=== PATIENT | female | born 1970 | race Caucasian/White ===

== ENCOUNTER 2021-03-02 15:36 | Inpatient (IN) | payer OTHER, SELFPAY ==
[~2021-03-02] VITALS: Ht 177.8 cm; Wt 96.3 kg
--- NOTE | 2021-03-02 15:40 | NUR ---
ARRIVAL PRESENTED TO ED RM #3 AMBULATORY WITH C/O CHEST PAIN SINCE 0100AM AND N/V THIS AM. C/O SOB THIS AFTERNOON AND INCREASING SEVERITY OF CHEST PAIN. VS OBTAINED. DR. DICKINSON NOTIFIED OF PATIENT ARRIVAL.
--- NOTE | 2021-03-02 15:45 | NUR ---
EKG EKG OBTAINED. EKG REVIEWED BY DR. DICKINSON. NO NEW ORDERS AT THIS TIME.
[2021-03-02 16:06] VITALS: BP 117/75
--- NOTE | 2021-03-02 16:10 | NUR ---
MD DR. DICKINSON AT BEDSIDE.
--- NOTE | 2021-03-02 16:22 | PCM.EKG ---
[facility] Test Date: 2021-03-02 Test Time: 15:47:25 Pat Name: SUSHIL POTTS Department: Room: 330 Gender: F Front Desk Monitor: FILI : 1970 Requested By: JERRY DICKINSON Order Number: [id number] Reading MD: Jerry Dickinson Measurements Intervals [place] Rate: 106 P: 29 IN: 135 QRS: -14 QRSD: 84 T: 16 QT: 352 QTc: 468 Interpretive Statements Sinus tachycardia Inferior infarct, old No previous ECG available for comparison Electronically Signed On 03-08-2021 5:00:40 CLIENT CARE COORDINATOR by Jerry Dickinson Please click the below link to view image of tracing.
[2021-03-02] MEDS ORDERED: LIDOCAINE VISCOUS ONE (16:25)
[2021-03-02] MEDS ORDERED: NS 1000ML 1,000 ML IV STA (16:25)
[2021-03-02] MEDS ORDERED: PHENERGAN IV STA (16:25)
[2021-03-02] MEDS ORDERED: MYLANTA ONE (16:26)
[2021-03-02 16:37] LABS: LYMPHOCYTES # 1.28 10^3/uL1 (1.0-4.8); MEAN CORP HGB 35.6 pg (26-34); MONOCYTES # 0.6 10^3/uL (0.3-0.8); MONOCYTES % 6.2 % (5.0-12.0); NEUTROPHIL # 7.3 10^3/uL (1.8-7.7); NEUTROPHILS % 79.7 % (41.0-85.0); PLATELET COUNT 210 10^3/uL (150-400); RED CELL DISTRIBUTION WIDTH 12.1 % (11.5-14.5)
[2021-03-02] MEDS ORDERED: NS 1000ML 1,000 ML ONE (16:42)
[2021-03-02] MEDS ORDERED: PHENERGAN ONE (16:42)
--- NOTE | 2021-03-02 17:00 | ER.PDOC ---
General Chief Complaint: Requesting Medical Care Stated Complaint: CHEST PAIN Time seen by MD: 16:20 Source: patient, family Exam Limitations: no limitations History of Present Illness Initial Comments This 50-year-old female comes in with a complaint of abdominal pain this been present now since 1 AM. Stated it woke her up with a severe epigastric pain. She has had some nausea vomiting throughout the day. The pain at 1:00 she rated at 10/10. It is slowly improved some and is now down to a 6/10. Patient states that she had similar pain about a month ago that lasted for about 12 hours and went away. She stated that that pain also woke her up at night and was not as severe and went away about 12 hours later. She did not seek any medical attention at that time. Patient's cardiac risk factors are a [id number] history of smoking a pack of cigarettes per day. She also has a 3-year history of drinking a pint of whiskey per day. I suspect her pain could either be a pancreatitis or possibly alcoholic gastritis. However, we will also check cardiac enzymes and EKG. Patient states that she has some nausea and diaphoresis with this but she thinks it secondary to the pain. I asked about shortness of breath and she states it hurts to take a deep breath but she denies actual shortness of breath. Timing/Duration: other (Approximately 16 hours now with pain slowly slowly improving) Severity/Quality: severe, burning, cramping, stabbing, throbbing Radiation: no radiation Associated Symptoms: diaphoresis, heartburn, nausea/vomiting Exacerbated by: movements, other (Any movement has caused her pain to be worse. She states that even riding the car and made her pain worse. All the pain is still mid abdomen/mid abdomen through epigastric region.) Relieved By: upright position (Remaining still and and a slightly upright position seems to be better. Lying down seems to make her pain worse), remaining still Allergies: Coded Allergies: Penicillins (Verified Allergy, Unknown, hives, 03/02/21) erythromycin base (Verified Allergy, Unknown, 03/02/21) Vital Signs First Vital Signs Date Time Temp Pulse Resp B/P (MAP) Pulse Ox O2 Delivery O2 Flow Rate FiO2 03/02/21 16:06 98.0 110 20 117/75 (89) 96 Room Air Last Vital Signs Date Time Temp Pulse Resp B/P (MAP) Pulse Ox O2 Delivery O2 Flow Rate FiO2 03/02/21 17:21 98.0 97 18 117/75 (89) 96 Room Air Past Medical History Medical History: COPD, other Surgical History: hysterectomy Family History Significant Family History: no pertinent family hx Social History Smoking: cigarettes, greater than 1 pack/day Alcohol Use: heavy Drug Use: none Reviewed Nursing Reviewed: Vital Signs, Abn. Noted (Patient has some tachycardia but I think his pain response), Nursing Assessment Gastrointestinal: see HPI All Other Systems: Reviewed and Negative Physical Exam General Appearance: No Apparent Distress, WD/WN, Moderate Distress HEENT: PERRL/EOMI, Normal ENT Inspection, Pharynx Normal Neck: Non-Tender, Full Range of Motion, Supple, Normal Inspection Respiratory: chest non-tender, lungs clear, normal breath sounds, no respiratory distress, no accessory muscle use Cardiovascular: Normal Peripheral Pulses, No Edema, No Gallop, No JVD, No Murmur, Tachycardia Gastrointestinal: Hypoactive bowel sounds, Guarding, Rebound, Tenderness (All pain is in the mid to epigastric region.) Back: Normal Inspection, No CVA Tenderness Extremities: Normal Range of Motion, Non-Tender, Normal Inspection, No Pedal Edema, No Calf Tenderness, Normal Capillary Refill, Pelvis Stable Neurologic/Psychiatric: folded cloth taper II-XII NML as Tested, No Motor/Sensory Deficits, Alert, Normal Mood/Affect, Oriented x 3 Skin: Normal Color, Warm/Dry Lymphatic: No Adenopathy Results/Orders Results/Orders Orders - PATRIA DICKINSON MD Ekg-Routine (03/02/21 16:20) Covid19 Antigen Rajwinder Taya (03/02/21 16:20) Lidocaine Hcl (Lidocaine Viscous) (03/02/21 16:25) Mag Hydrox/Aluminum Hyd/Simeth (Mylanta) (03/02/21 16:26) Cbc With Auto Diff (03/02/21 16:25) Comprehensive Metabolic Panel (03/02/21 16:25) Creatine Kinase (03/02/21 16:25) Creatine Kinase Mb (03/02/21 16:25) Probnp B-Type Store Sales Consultant (03/02/21 16:25) PT (03/02/21 16:25) Partial Thromboplastin Time. (03/02/21 16:25) Helicobacter Pylori (03/02/21 16:25) Troponin I High Sensitivity (03/02/21 16:25) Amylase (03/02/21 16:25) Lipase (03/02/21 16:25) Alcohol(Ml) (03/02/21 16:25) 0.9 % Sodium Chloride (Ns 1000ml) (03/02/21 16:25) Promethazine Hcl (Phenergan) (03/02/21 16:25) 0.9 % Sodium Chloride (Ns 1000ml) (03/02/21 16:42) Promethazine Hcl (Phenergan) (03/02/21 16:42) Lipid Panel(Ml) (03/02/21 17:28) Ct Abd/Pel With Iv Contrast (03/02/21 17:28) Lorazepam (Ativan) (03/02/21 17:41) Hydromorphone Hcl (Dilaudid) (03/02/21 17:41) Hydromorphone Hcl (Dilaudid) (03/02/21 17:44) Lorazepam (Ativan) (03/02/21 17:45) Vital Signs Date Time Temp Pulse Resp B/P (MAP) Pulse Ox O2 Delivery O2 Flow Rate FiO2 03/02/21 17:21 98.0 97 18 117/75 (89) 96 Room Air 03/02/21 16:06 98.0 105 19 03/02/21 16:06 98.0 105 19 95 03/02/21 16:06 98.0 110 20 117/75 (89) 96 Room Air Administered Medications Medications (Trade) Dose Ordered Sig/Gerardo Route PRN Reason Start Time Stop Time Status Last Admin Dose Admin Hydromorphone HCl (Dilaudid) 0.5 mg Q4H STAT IV 03/02/21 17:41 03/02/21 17:43 DC 03/02/21 18:34 0.5 MG Lorazepam (Ativan) 1 mg STAT STAT IV 03/02/21 17:41 03/02/21 17:43 DC 03/02/21 18:32 1 MG Promethazine HCl (Phenergan) 25 mg OT STAT IV 03/02/21 16:25 03/02/21 16:31 DC 03/02/21 16:40 25 MG Sodium Chloride 1,000 ml @ 250 mls/hr Q4H STAT IV 03/02/21 16:25 03/02/21 20:24 03/02/21 16:40 250 MLS/HR Laboratory Tests Test 03/02/21 16:00 White Blood Count 9.1 10^3/uL (4.5-11.0) Red Blood Count 4.35 10^6/uL (4.00-5.20) Hemoglobin 15.5 g/dL (12.0-15.0) H Hematocrit 46.5 % (36.0-46.0) H Mean Corpuscular Volume 106.9 fL (78-100) H Mean Corpuscular Hemoglobin 35.6 pg (26-34) H Mean Corpuscular Hemoglobin Concent 33.3 g/dL (33-36.5) Red Cell Distribution Width 12.1 % (11.5-14.5) Platelet Count 210 10^3/uL (150-400) Mean Platelet Volume 10.7 fL (7.8-11.0) Neutrophils (%) (Auto) 79.7 % (41.0-85.0) Lymphocytes (%) (Auto) 14.0 % (24.0-44.0) L Monocytes (%) (Auto) 6.2 % (5.0-12.0) Neutrophils # (Auto) 7.3 10^3/uL (1.8-7.7) Lymphocytes # (Auto) 1.28 10^3/uL1 (1.0-4.8) Monocytes # (Auto) 0.6 10^3/uL (0.3-0.8) Absolute Immature Granulocyte (auto 0.01 10^3 u/L (0-2) Absolute Eosinophils (auto) 0.0 10^3/uL (0.0-0.2) Immature Granulocytes % 0.10 % (0.00-0.50) Eosinophils % 0.0 % (0.0-5.0) Basophils % 0.0 % (0.0-0.2) Basophils # 0.0 10^3/uL (0.0-0.1) Prothrombin Time 11.0 SEC (9.6-12.0) Prothrombin Time INR (Non-Therap) 1.0 Activated Partial Thromboplast Time 23.7 SEC (24.67-30.72) Sodium Level 139 mmol/L (132-145) Potassium Level 4.4 mmol/L (3.6-5.2) Chloride Level 99.0 mmol/L (96-109) Carbon Dioxide Level 27.5 mmol/L (20.0-32) Anion Gap 16.9 Blood Urea Nitrogen 12 mg/dL (7-18) Creatinine 0.83 mg/dL (0.59-1.40) Estimated GFR () 87.7 (>/=60) Est GFR (CKD-EPI)(Non-Afr Moroccan) 72.5 (>/=60) BUN/Creatinine Ratio 14.0 Glucose Level 102 mg/dL (70-110) Calcium Level 9.3 mg/dL (8.4-10.5) Total Bilirubin 1.2 mg/dL (0.2-1.0) H Aspartate Amino Transferase (AST) 215 U/L (0-35) H Alanine Aminotransferase (ALT) 218 U/L (12-78) H Alkaline Phosphatase 142 U/L (50-136) H Total Creatine Kinase 54 U/L (26-192) Creatine Kinase MB 0.9 ng/mL (0.5-3.6) Troponin I High Sensitivity < 4 ng/L (0-50) Pro-B-Type Natriuretic Peptide 52 pg/mL (0-125) Total Protein 8.1 g/dL (6.4-8.2) Albumin 4.3 g/dL (3.4-5.0) Globulin 3.8 Albumin/Globulin Ratio 1.131 Triglycerides Level 83 mg/dL (20-200) Cholesterol Level 281 mg/dL (120-240) H LDL Cholesterol, Calculated 167.4 VLDL Cholesterol, Calculated 16.6 HDL Cholesterol 97 mg/dL (32-96) H Cholesterol Ratio (LDL/HDL) 1.7 Cholesterol/HDL Ratio 2.048169 Amylase Level 211 U/L (25-115) H Lipase 2994 U/L (114-286) H Serum Alcohol < 3 mg/dL (0-50) Helicobacter pylori Screen NEGATIVE (NEGATIVE) SARS-CoV-2 Antigen (Rapid) NEGATIVE (NEGATIVE) Progress Progress EKG was obtained an EKG showed a sinus tachAt a rate of 106 beats a minute she is got Q waves in lead II and III suggestive of an old inferior PR. However, no history of it. There is no acute ST elevation or depression suggestive of any acute injury or ischemia. Diagnostic studies back at time of dictation alcohol level is negative coags are unremarkable H pylori is negative CBC white count is 9.1 H&H are both elevated at 15.5/46.5, , Platelets are normal at 210,000.MCV is elevated at 106.9 and MCH is elevated at 35.6. Patient was given a GI cocktail to see if it changed her pain at all and it did not. So I doubt alcoholic gastritis or esophagitis is the cause of her pain. Lipid panel shows cholesterol elevated at 281 HDL elevated elevated at 97 the rest of the lipids are normal. CT scan shows findings of acute pancreatitis and an enlarged fatty liver ER DEPART Departure Time of Disposition: 19:50 Disposition: 09 ADMITTED INPATIENT Impression: Primary Impression: Pancreatitis, alcoholic, acute Condition: Stable Referrals: UNDEFINED,PHYSICIAN (PCP) PRIMARY CARE PROVIDER Duration or Time Spent with Pa: 25m PATRIA DICKINSON MD Mar 02, 2021 17:00
[2021-03-02 17:06] LABS: ALANINE AMINOTRANSFERASE(ML) 218 U/L (12-78); ALKALINE PHOSPHATASE 142 U/L (50-136); ASPARTATE AMINO TRANSFERASE 215 U/L (0-35); CALCIUM 9.3 mg/dL (8.4-10.5); CARBON DIOXIDE 27.5 mmol/L (20.0-32); GLUCOSE 102 mg/dL (70-110)
[2021-03-02 17:21] VITALS: BP 117/75
[2021-03-02] MEDS ORDERED: ATIVAN IV STA (17:41)
[2021-03-02] MEDS ORDERED: DILAUDID IV STA (17:41)
[2021-03-02] MEDS ORDERED: DILAUDID ONE ×2 (17:44→20:47)
[2021-03-02] MEDS ORDERED: ATIVAN ONE (17:45)
--- NOTE | 2021-03-02 18:25 | NUR ---
IV IV SUCCESSFUL X1 ATTEMPT TO R FOREARM USING ASEPTIC TECHNIQUE, TOLERATED WELL.
--- NOTE | 2021-03-02 18:42 | NUR ---
REPORT REPORT GIVEN TO [facility] STAFF, MIAN COLUNGA.
--- NOTE | 2021-03-02 19:42 | DIREP ---
PROCEDURE:CT ABDOMEN/PELVIS W/ CONTRAST COMPARISON:None. INDICATIONS:pancreatitis TECHNIQUE:Axial images were created through the abdomen and pelvis with non-ionic intravenous contrast material. No oral contrast was administered. Sagittal and coronal reconstructions were performed from source images. FINDINGS: LUNG BASES:Normal. No visible pulmonary or pleural disease. LIVER:Diffusely diminished hepatic attenuation consistent with hepatic steatosis. Liver is enlarged, right lobe measures 21 cm in cephalocaudal dimension. BILIARY:Normal. No visible dilatation or calcification. PANCREAS:Inflammation in and around the pancreas suggesting acute pancreatitis, correlate with amylase/lipase. No peripancreatic fluid collection. SPLEEN:Normal. No enlargement or focal lesion. ADRENALS:Normal. No mass or enlargement. URINARY TRACT:Normal. No focal lesions or hydronephrosis. AORTA/VASCULAR:Normal. No aneurysm. RETROPERITONEUM:Normal. No mass or adenopathy. BOWEL/MESENTERY:The appendix is visualized and appears normal. There is no intestinal obstruction, free fluid, free air or mesenteric inflammatory changes. Diverticulosis of the sigmoid colon without acute diverticulitis. ABDOMINAL WALL:Normal. No mass or hernia. PELVIC ORGANS:Normal. No visible mass. Pelvic organs appropriate for patient age. BONES:There are degenerative changes of the spine. OTHER:Negative. CONCLUSION:Findings suggesting acute pancreatitis. Enlarged fatty liver. See above incidental findings. Dictated by: Edin Ayala M.D. on 03/02/2021 at 07:37 PM
--- NOTE | 2021-03-02 20:00 | NUR ---
ARRIVAL TO [facility] ROOM 332 VIA WHEELCHAIR
[2021-03-02 20:10] VITALS: BP 120/76
--- NOTE | 2021-03-02 20:15 | NUR ---
TRANSFERRED TO /S TRANSFERRED TO /S BY EWELINA COOK. BEDSIDE REPORT GIVEN. ALERT AND ORIENTED X3.
--- NOTE | 2021-03-02 20:20 | PCM.HP ---
History of Present Illness Hx of Present Illness This 50-year-old female comes in with a complaint of abdominal pain this been present now since 1 AM. Stated it woke her up with a severe epigastric pain. She has had some nausea vomiting throughout the day. The pain at 1:00 she rated at 10/10. It is slowly improved some and is now down to a 6/10. Patient states that she had similar pain about a month ago that lasted for about 12 hours and went away. She stated that that pain also woke her up at night and was not as severe and went away about 12 hours later. She did not seek any medical attention at that time. Patient's cardiac risk factors are a 34-[id number]-[id number] history of smoking a pack of cigarettes per day. She also has a 3-year history of drinking a pint of whiskey per day. Last drink was 9 PM last night previous history of alcoholic pancreatitis EKG showed a sinus tach At a rate of 106 beats a minute she has Q waves in lead II and III suggestive of an old inferior OR. There is no acute ST elevation or depression suggestive of any acute injury or ischemia. Diagnostic studies: alcohol level is negative coags are unremarkable H pylori is negative CBC white count is 9.1 H&H are both elevated at 15.5/46.5, lipase 2994.MCV is elevated at 106.9 and MCH is elevated at 35.6. Patient was given a GI cocktail to see if it changed her pain at all and it did not. So I doubt alcoholic gastritis or esophagitis is the cause of her pain. Lipid panel shows cholesterol elevated at 281 HDL elevated elevated at 97 the rest of the lipids are normal. CT scan shows findings of acute pancreatitis and an enlarged fatty liver Review of Systems Constitutional: No: Fever, Chills, Sweats, Weakness, Malaise, Other Eyes: No: Pain, Vision change, Conjunctivae inflammation, Eyelid inflammation, Other, Redness ENT: No: Ear pain, Ear discharge, Nose pain, Nose discharge, Nose congestion, Mouth pain, Mouth swelling, Throat pain, Throat swelling, Other Respiratory: No: Cough, Dry, Shortness of breath, SOB with excertion, Wheezing, Hemoptysis, Pleuritic Pain, Sputum, Wheezing, Other Cardiovascular: No: Chest Pain, Palpitations, Orthopnea, Paroxysmal Noc. Dyspnea, Edema, Lt Headedness, Other Gastrointestinal: Nausea, Vomiting, Abdominal Pain Genitourinary: No Dysuria, No Frequency, No Incontinence, No Hematuria, No Retention, No Other Musculoskeletal: No: other, neck pain, shoulder pain, arm pain, back pain, hand pain, leg pain, foot pain Skin: No: Rash, Lesions, Jaundice, Bruising, Other Neurological: No: Weakness, Numbness, Incoordination, Change in speech, Confusion, Seizures, Other Allergies: Coded Allergies: Penicillins (Verified Allergy, Unknown, hives, 03/02/21) erythromycin base (Verified Allergy, Unknown, 03/02/21) VTE VTE Risk Score VTE Risk: Score 0-1 = Low Risk (Aggressive mobilization; early ambulation; no VTE prophylaxis required) Score 2: Moderate Risk (Intermittent/Pneumatic Compression Device OR Lovenox/Heparin/Coumadin) Score 3-4: High Risk (Intermittent/Pneumatic Compression Device AND Lovenox/Heparin/Coumadin) Score > or =5: Highest Risk (Intermittent/Pneumatic Compression Device AND Lovenox/Heparin/Coumadin) Antico:Hep/LMWH/Coum/Xarelto: Yes Exam Vital Signs Vital Signs Date Time Temp Pulse Resp B/P (MAP) Pulse Ox O2 Delivery O2 Flow Rate FiO2 03/02/21 17:21 98.0 97 18 117/75 (89) 96 Room Air General Appearance: Alert, Oriented X3, mild distress, Other (Patient appears shaky and mildly agitated) HEENT: Atraumatic, PERRLA Respiratory: Clear to auscultation Cardiovascular: Regular rate, Normal S1 Abdominal: Normal bowel sounds, Soft, Other (Moderate epigastric pain) Extremities: No clubbing Skin: No rash, No breakdown, No lesions, Rash Neuro: Strength at 5/5 X4 ext, Normal tone, Sensation intact, Cranial nerves 3- 12 NL Psych/Mental Status: Other (Mildly agitated) Assessment/Plan Assessment/Plan Assessment/Plan 50-year-old heavy drinker who presents with alcoholic pancreatitis and possible early alcohol withdrawal Alcoholic pancreatitis Lipase 3000 bili 1.2 mildly elevated LFTs in the setting of chronic alcohol abuse. Normal triglycerides patient is not known to be taking any offending medications no clear evidence of biliary pancreatitis. We will treat with IV fluids, bowel rest, pain and nausea control will attempt clears in the a.m. depending on patient's clinical status and advance diet as tolerated slowly Chronic alcohol abuse with possible early withdrawal CIWA scale scheduled Ativan, thiamine, folate counseling done last drink was approximately 9 PM the night before presentation and alcohol level is currently not detectable Prophylaxis Enoxaparin, folic acid, thiamine, PPI Full code LISA DUMONT MD Mar 02, 2021 20:20
[2021-03-02 20:28] VITALS: BP 123/96
[2021-03-02] MEDS ORDERED: ZOFRAN IV PRN (20:30)
[2021-03-02] MEDS ORDERED: ATIVAN IV PRN (20:30)
[2021-03-02] MEDS: NS 1000ML/KCL 20MEQ 1,000 ML IV SCH (21:02)
[2021-03-02] MEDS: DILAUDID IV PRN (21:03)
[2021-03-03 01:27] VITALS: BP 144/84
[2021-03-03] MEDS: DILAUDID IV PRN ×3 (02:28→21:10)
[2021-03-03 04:11] VITALS: BP 144/82
[2021-03-03 06:03] LABS: BASOPHIL % 0.2 % (0.0-0.2); EOSINOPHIL % 0.6 % (0.0-5.0); LYMPHOCYTES # 1.34 10^3/uL1 (1.0-4.8); LYMPHOCYTES % 21.2 % (24.0-44.0); MEAN CORP HGB 35.3 pg (26-34); MONOCYTES # 0.4 10^3/uL (0.3-0.8); MONOCYTES % 5.7 % (5.0-12.0); NEUTROPHIL # 4.6 10^3/uL (1.8-7.7); NEUTROPHILS % 72.1 % (41.0-85.0); PLATELET COUNT 150 10^3/uL (150-400); RED CELL DISTRIBUTION WIDTH 12.2 % (11.5-14.5)
[2021-03-03 06:08] LABS: CALCIUM 8.8 mg/dL (8.4-10.5); CARBON DIOXIDE 28.2 mmol/L (20.0-32)
[2021-03-03] MEDS: NS 1000ML/KCL 20MEQ 1,000 ML IV SCH ×2 (06:50→16:30)
[2021-03-03 08:15] VITALS: BP 136/93
[2021-03-03] MEDS: FOLIC ACID PO SCH (08:32)
[2021-03-03] MEDS: THIAMINE HCL PO SCH (08:32)
--- NOTE | 2021-03-03 10:11 | NUR ---
DISCHARGE PLAN CM AT BEDSIDE TO VISIT WITH PATIENT REGARDING D/C PLAN. PATIENT LIVES AT HOME ALONE AND IS IND OF ADL. HER PCP IS DR GIMENEZ IN [facility]. SHE DOES NOT USE DME OR REQUIRE USE OF ANY IN THE HOME. CM EDUCATED ON [facility] AND LEFT A HAND OUT AT BEDSIDE. DISCHARGE PLAN IS FOR PATIENT TO D/C BACK HOME TO ROUTINE CARE.
[2021-03-03 11:27] VITALS: BP 135/89
[2021-03-03] MEDS ORDERED: NORCO 5MG PO PRN (12:00)
[2021-03-03 15:25] VITALS: BP 131/91
--- NOTE | 2021-03-03 19:35 | PRM.PN ---
Subjective Subjective Date: Mar 03, 2021 Time: 19:33 Subjective Patient reports that her abdominal discomfort is improving as well as her nausea and she is willing to take some sips of ice water to let pain be her guide and advance diet as tolerated no current signs of withdrawal VTE VTE Risk Total Score: 1 VTE Risk Score VTE Risk: Score 0-1 = Low Risk (Aggressive mobilization; early ambulation; no VTE prophylaxis required) Score 2: Moderate Risk (Intermittent/Pneumatic Compression Device OR Lovenox/Heparin/Coumadin) Score 3-4: High Risk (Intermittent/Pneumatic Compression Device AND Lovenox/Heparin/Coumadin) Score > or =5: Highest Risk (Intermittent/Pneumatic Compression Device AND Lovenox/Heparin/Coumadin) Review of Systems Constitutional: No: Fever, Chills, Sweats, Weakness, Malaise, Other Eyes: No: Pain, Vision change, Conjunctivae inflammation, Eyelid inflammation, Other, Redness ENT: No: Ear pain, Ear discharge, Nose pain, Nose discharge, Nose congestion, Mouth pain, Mouth swelling, Throat pain, Throat swelling, Other Respiratory: No: Cough, Dry, Shortness of breath, SOB with excertion, Wheezing, Hemoptysis, Pleuritic Pain, Sputum, Wheezing, Other Cardiovascular: No: Chest Pain, Palpitations, Orthopnea, Paroxysmal Noc. Dyspnea, Edema, Lt Headedness, Other Gastrointestinal: Nausea, Abdominal Pain; No: Vomiting Genitourinary: No Dysuria, No Frequency, No Incontinence, No Hematuria, No Retention, No Other Musculoskeletal: No: other, neck pain, shoulder pain, arm pain, back pain, hand pain, leg pain, foot pain Skin: No: Rash, Lesions, Jaundice, Bruising, Other Neurological: No: Weakness, Numbness, Incoordination, Change in speech, Confusion, Seizures, Other Allergies: Coded Allergies: Penicillins (Verified Allergy, Unknown, hives, 03/02/21) erythromycin base (Verified Allergy, Unknown, 03/02/21) Objective Vitals and I/O Vital Sign - Last 24 Hours 03/03/21 03/03/21 03/03/21 08:15 11:27 15:25 Temp 98.4 98.3 98.0 Pulse 100 89 97 Resp 19 16 17 B/P (MAP) 136/93 (107) 135/89 (104) 131/91 (104) Pulse Ox 95 95 92 General: Alert, Oriented X3, Cooperative, No acute distress HEENT: Atraumatic, PERRLA Neck: Supple, No JVD Lungs: Clear to auscultation Heart: Regular rate, Normal S1, Normal S2, No murmurs Abdomen: Normal bowel sounds, Soft, No masses, Other (Mild epigastric tenderness) Extremities: No clubbing, No cyanosis, No edema, Normal pulses, No tenderness/swelling Skin: No rashes, No breakdown, No significant lesion Neuro: Normal gait, Normal speech, Strength at 5/5 X4 ext, Normal tone, Sensation intact Psych/Mental Status: Mental status NL, Mood NL All Results(Lab/Rad) Laboratory Tests Test 03/03/21 05:45 White Blood Count 6.3 10^3/uL Red Blood Count 3.99 10^6/uL Hemoglobin 14.1 g/dL Hematocrit 43.7 % Mean Corpuscular Volume 109.5 fL Mean Corpuscular Hemoglobin 35.3 pg Mean Corpuscular Hemoglobin Concent 32.3 g/dL Red Cell Distribution Width 12.2 % Platelet Count 150 10^3/uL Mean Platelet Volume 10.6 fL Neutrophils (%) (Auto) 72.1 % Lymphocytes (%) (Auto) 21.2 % Monocytes (%) (Auto) 5.7 % Neutrophils # (Auto) 4.6 10^3/uL Lymphocytes # (Auto) 1.34 10^3/uL1 Monocytes # (Auto) 0.4 10^3/uL Absolute Immature Granulocyte (auto 0.01 10^3 u/L Absolute Eosinophils (auto) 0.0 10^3/uL Immature Granulocytes % 0.20 % Eosinophils % 0.6 % Basophils % 0.2 % Basophils # 0.0 10^3/uL Sodium Level 139 mmol/L Potassium Level 3.8 mmol/L Chloride Level 101.0 mmol/L Carbon Dioxide Level 28.2 mmol/L Anion Gap 13.6 Blood Urea Nitrogen 11 mg/dL Creatinine 0.83 mg/dL Estimated GFR () 87.7 Est GFR (CKD-EPI)(Non-Afr Thai) 72.5 BUN/Creatinine Ratio 13.0 Glucose Level 100 mg/dL Hemoglobin A1c 5.3 % Calcium Level 8.8 mg/dL Total Bilirubin 1.3 mg/dL Aspartate Amino Transf (AST/SGOT) 137 U/L Alanine Aminotransferase (ALT/SGPT) 154 U/L Alkaline Phosphatase 126 U/L Total Protein 7.3 g/dL Albumin 3.6 g/dL Globulin 3.7 Albumin/Globulin Ratio 0.972 Lipase 2181 U/L Current Medications Medications (Trade) Dose Ordered Sig/Gerardo Route PRN Reason Start Time Stop Time Status Last Admin Dose Admin Lidocaine HCl (Lidocaine Viscous) 1 ml STK-MED ONCE .ROUTE 03/02/21 16:25 03/02/21 16:26 DC Sodium Chloride 1,000 ml @ 250 mls/hr Q4H STAT IV 03/02/21 16:25 03/02/21 20:24 DC 03/02/21 16:40 Promethazine HCl (Phenergan) 25 mg OT STAT IV 03/02/21 16:25 03/02/21 16:31 DC 03/02/21 16:40 Sodium Chloride 1,000 ml @ ud STK-MED ONCE .ROUTE 03/02/21 16:42 03/02/21 16:42 DC Promethazine HCl (Phenergan) 25 mg STK-MED ONCE .ROUTE 03/02/21 16:42 03/02/21 16:42 DC Lorazepam (Ativan) 1 mg STAT STAT IV 03/02/21 17:41 03/02/21 17:43 DC 03/02/21 18:32 Hydromorphone HCl (Dilaudid) 0.5 mg Q4H STAT IV 03/02/21 17:41 03/02/21 17:43 DC 03/02/21 18:34 Hydromorphone HCl (Dilaudid) 2 mg STK-MED ONCE .ROUTE 03/02/21 17:44 03/02/21 17:44 DC Lorazepam (Ativan) 2 mg STK-MED ONCE .ROUTE 03/02/21 17:45 03/02/21 17:45 DC Potassium Chloride/Sodium Chloride 1,000 ml @ 100 mls/hr Q10H IV 03/02/21 20:30 04/01/21 20:29 03/03/21 06:50 Lorazepam (Ativan) 1 mg Q4HR PRN IV ANXIETY 03/02/21 20:30 04/01/21 20:29 03/02/21 21:03 Hydromorphone HCl (Dilaudid) 0.5 mg Q4H PRN IV PAIN 7 - 10 03/02/21 20:30 03/03/21 11:56 DC 03/03/21 02:28 Ondansetron HCl (Zofran) 4 mg Q4H PRN IV NAUSEA / VOMITING 03/02/21 20:30 04/01/21 20:29 Thiamine HCl (Thiamine HCl) 100 mg DAILY PO 03/03/21 09:00 04/02/21 08:59 03/03/21 08:32 Folic Acid (Folic Acid) 1 mg DAILY PO 03/03/21 09:00 04/02/21 08:59 03/03/21 08:32 Hydromorphone HCl (Dilaudid) 2 mg STK-MED ONCE .ROUTE 03/02/21 20:47 03/02/21 20:48 DC Acetaminophen/ Hydrocodone Bitart ([place] 5mg) 1 ea Q6HR PRN PO PAIN 4 - 6 03/03/21 12:00 04/02/21 11:59 Hydromorphone HCl (Dilaudid) 0.5 mg Q6HR PRN IV PAIN 7 - 10 03/03/21 12:00 04/01/21 20:29 03/03/21 14:42 Course Sepsis Screening Results: Posi: NEGATIVE Sepsis Qualifier/Stage: NO DEFINITE RISK Duration or Total Time Spent w: 25m Vitals & review Data Vital Sign - Last 24 Hours 03/03/21 03/03/21 03/03/21 08:15 11:27 15:25 Temp 98.4 98.3 98.0 Pulse 100 89 97 Resp 19 16 17 B/P (MAP) 136/93 (107) 135/89 (104) 131/91 (104) Pulse Ox 95 95 92 Laboratory Tests Test 03/02/21 16:00 03/03/21 05:45 White Blood Count 9.1 10^3/uL 6.3 10^3/uL Red Blood Count 4.35 10^6/uL 3.99 10^6/uL Hemoglobin 15.5 g/dL 14.1 g/dL Hematocrit 46.5 % 43.7 % Mean Corpuscular Volume 106.9 fL 109.5 fL Mean Corpuscular Hemoglobin 35.6 pg 35.3 pg Mean Corpuscular Hemoglobin Concent 33.3 g/dL 32.3 g/dL Red Cell Distribution Width 12.1 % 12.2 % Platelet Count 210 10^3/uL 150 10^3/uL Mean Platelet Volume 10.7 fL 10.6 fL Neutrophils (%) (Auto) 79.7 % 72.1 % Lymphocytes (%) (Auto) 14.0 % 21.2 % Monocytes (%) (Auto) 6.2 % 5.7 % Neutrophils # (Auto) 7.3 10^3/uL 4.6 10^3/uL Lymphocytes # (Auto) 1.28 10^3/uL1 1.34 10^3/uL1 Monocytes # (Auto) 0.6 10^3/uL 0.4 10^3/uL Absolute Immature Granulocyte (auto 0.01 10^3 u/L 0.01 10^3 u/L Absolute Eosinophils (auto) 0.0 10^3/uL 0.0 10^3/uL Immature Granulocytes % 0.10 % 0.20 % Eosinophils % 0.0 % 0.6 % Basophils % 0.0 % 0.2 % Basophils # 0.0 10^3/uL 0.0 10^3/uL Prothrombin Time 11.0 SEC Prothrombin Time INR (Non-Therap) 1.0 Activated Partial Thromboplast Time 23.7 SEC Sodium Level 139 mmol/L 139 mmol/L Potassium Level 4.4 mmol/L 3.8 mmol/L Chloride Level 99.0 mmol/L 101.0 mmol/L Carbon Dioxide Level 27.5 mmol/L 28.2 mmol/L Anion Gap 16.9 13.6 Blood Urea Nitrogen 12 mg/dL 11 mg/dL Creatinine 0.83 mg/dL 0.83 mg/dL Estimated GFR () 87.7 87.7 Est GFR (CKD-EPI)(Non-Afr Thai) 72.5 72.5 BUN/Creatinine Ratio 14.0 13.0 Glucose Level 102 mg/dL 100 mg/dL Calcium Level 9.3 mg/dL 8.8 mg/dL Total Bilirubin 1.2 mg/dL 1.3 mg/dL Aspartate Amino Transf (AST/SGOT) 215 U/L 137 U/L Alanine Aminotransferase (ALT/SGPT) 218 U/L 154 U/L Alkaline Phosphatase 142 U/L 126 U/L Total Creatine Kinase 54 U/L Creatine Kinase MB 0.9 ng/mL Troponin I High Sensitivity < 4 ng/L Pro-B-Type Natriuretic Peptide 52 pg/mL Total Protein 8.1 g/dL 7.3 g/dL Albumin 4.3 g/dL 3.6 g/dL Globulin 3.8 3.7 Albumin/Globulin Ratio 1.131 0.972 Triglycerides Level 83 mg/dL Cholesterol Level 281 mg/dL LDL Cholesterol, Calculated 167.4 VLDL Cholesterol, Calculated 16.6 HDL Cholesterol 97 mg/dL Cholesterol Ratio (LDL/HDL) 1.7 Cholesterol/HDL Ratio [id number] Amylase Level 211 U/L Lipase 2994 U/L 2181 U/L Serum Alcohol < 3 mg/dL Helicobacter pylori Screen NEGATIVE SARS-CoV-2 Antigen (Rapid) NEGATIVE Hemoglobin A1c 5.3 % Current Medications Medications (Trade) Dose Ordered Sig/Gerardo PRN Reason Start Time Stop Time Status Last Admin Acetaminophen/ Hydrocodone Bitart ([place] 5mg) 1 ea Q6HR PRN PAIN 4 - 6 03/03/21 12:00 04/02/21 11:59 Folic Acid (Folic Acid) 1 mg DAILY 03/03/21 09:00 04/02/21 08:59 03/03/21 08:32 Hydromorphone HCl (Dilaudid) 0.5 mg Q6HR PRN PAIN 7 - 10 03/03/21 12:00 04/01/21 20:29 03/03/21 14:42 Lorazepam (Ativan) 1 mg Q4HR PRN ANXIETY 03/02/21 20:30 04/01/21 20:29 03/02/21 21:03 Ondansetron HCl (Zofran) 4 mg Q4H PRN NAUSEA / VOMITING 03/02/21 20:30 04/01/21 20:29 Potassium Chloride/Sodium Chloride 1,000 ml @ 100 mls/hr Q10H 03/02/21 20:30 04/01/21 20:29 03/03/21 06:50 Thiamine HCl (Thiamine HCl) 100 mg DAILY 03/03/21 09:00 04/02/21 08:59 03/03/21 08:32 LEVEL 1 SEPSIS INFECTION CRITE: None/Not assessed Hematologic Evidence: None/Not assessed Hepatic Evidence: None/Not assessed Neurological Evidence: None/Not assessed Renal Evidence: None/Not assessed O2 Sat by Pulse Oximetry: 92 Assessment/Plan Assessment/Plan Assessment/Plan Assessment/Plan 50-year-old heavy drinker who presents with alcoholic pancreatitis and possible early alcohol withdrawal Alcoholic pancreatitis Lipase 3000-->2181 bili 1.2-->1.3 mildly elevated LFTs in the setting of chronic alcohol abuse, now decreasing. Normal triglycerides patient is not known to be taking any offending medications no clear evidence of biliary pancreatitis. We will treat with IV fluids, bowel rest, pain and nausea control will attempt clears in the a.m. depending on patient's clinical status and advance diet as tolerated slowly Chronic alcohol abuse with possible early withdrawal CIWA scale scheduled Ativan, thiamine, folate counseling done last drink was approximately 9 PM the night before presentation. Prophylaxis Enoxaparin, folic acid, thiamine, PPI Full code LISA DUMONT MD Mar 03, 2021 19:35
[2021-03-03 20:06] VITALS: BP 116/77
[2021-03-03] MEDS: PEPCID IV SCH (21:10)
[2021-03-04] MEDS: NS 1000ML/KCL 20MEQ 1,000 ML IV SCH ×2 (02:30→14:00)
[2021-03-04 03:18] VITALS: BP 121/68
[2021-03-04 04:47] LABS: BASOPHIL % 0.1 % (0.0-0.2); EOSINOPHIL # 0.2 10^3/uL (0.0-0.2); EOSINOPHIL % 2.2 % (0.0-5.0); LYMPHOCYTES # 1.66 10^3/uL1 (1.0-4.8); LYMPHOCYTES % 22.6 % (24.0-44.0); MEAN CORP HGB 36.1 pg (26-34); MONOCYTES # 0.5 10^3/uL (0.3-0.8); MONOCYTES % 7.2 % (5.0-12.0); NEUTROPHILS % 67.9 % (41.0-85.0); PLATELET COUNT 133 10^3/uL (150-400); RED CELL DISTRIBUTION WIDTH 11.8 % (11.5-14.5)
[2021-03-04 05:09] LABS: CARBON DIOXIDE 23.1 mmol/L (20.0-32)
[2021-03-04] MEDS: DILAUDID IV PRN ×3 (06:10→22:30)
[2021-03-04] MEDS: THIAMINE HCL PO SCH (08:43)
[2021-03-04] MEDS: PEPCID IV SCH ×2 (08:43→21:00)
[2021-03-04] MEDS: FOLIC ACID PO SCH (08:43)
[2021-03-04 09:54] VITALS: BP 127/82
[2021-03-04 12:12] VITALS: BP 134/91
--- NOTE | 2021-03-04 14:51 | PRM.PN ---
Subjective Subjective Date: Mar 04, 2021 Time: 09:00 Subjective Patient slowly improving, still having abdominal discomfort and nausea but was able to tolerate some liquids this morning. VTE VTE Risk Total Score: 1 VTE Risk Score VTE Risk: Score 0-1 = Low Risk (Aggressive mobilization; early ambulation; no VTE prophylaxis required) Score 2: Moderate Risk (Intermittent/Pneumatic Compression Device OR Lovenox/Heparin/Coumadin) Score 3-4: High Risk (Intermittent/Pneumatic Compression Device AND Lovenox/Heparin/Coumadin) Score > or =5: Highest Risk (Intermittent/Pneumatic Compression Device AND Lovenox/Heparin/Coumadin) Antico:Hep/LMWH/Coum/Xarelto: Yes Review of Systems Constitutional: No: Fever, Chills, Sweats, Weakness, Malaise, Other Eyes: No: Pain, Vision change, Conjunctivae inflammation, Eyelid inflammation, Other, Redness ENT: No: Ear pain, Ear discharge, Nose pain, Nose discharge, Nose congestion, Mouth pain, Mouth swelling, Throat pain, Throat swelling, Other Respiratory: No: Cough, Dry, Shortness of breath, SOB with excertion, Wheezing, Hemoptysis, Pleuritic Pain, Sputum, Wheezing, Other Cardiovascular: No: Chest Pain, Palpitations, Orthopnea, Paroxysmal Noc. Dyspnea, Edema, Lt Headedness, Other Gastrointestinal: Nausea, Abdominal Pain; No: Vomiting Genitourinary: No Dysuria, No Frequency, No Incontinence, No Hematuria, No Retention, No Other Musculoskeletal: No: other, neck pain, shoulder pain, arm pain, back pain, hand pain, leg pain, foot pain Skin: No: Rash, Lesions, Jaundice, Bruising, Other Neurological: No: Weakness, Numbness, Incoordination, Change in speech, Confusion, Seizures, Other Allergies: Coded Allergies: Penicillins (Verified Allergy, Unknown, hives, 03/02/21) erythromycin base (Verified Allergy, Unknown, 03/02/21) Objective Vitals and I/O Vital Sign - Last 24 Hours 03/03/21 03/03/21 03/04/21 03/04/21 15:25 20:06 03:18 03:38 Temp 98.0 98.1 98.6 Pulse 97 97 84 Resp 17 18 18 B/P (MAP) 131/91 (104) 116/77 (90) 121/68 (85) Pulse Ox 92 95 96 O2 Delivery Room Air Room Air 03/04/21 03/04/21 09:54 12:12 Temp 98.0 97.9 Pulse 87 89 Resp 18 18 B/P (MAP) 127/82 (97) 134/91 (105) Pulse Ox 97 94 General: Alert, Oriented X3, mild distress, Other (Patient appears shaky and mildly agitated) HEENT: Atraumatic, PERRLA Neck: Supple, No JVD Lungs: Clear to auscultation Heart: Regular rate, Normal S1 Abdomen: Normal bowel sounds, Soft, Other (Moderate epigastric pain) Extremities: No clubbing Skin: No rashes, No breakdown, No significant lesion Neuro: Strength at 5/5 X4 ext, Normal tone, Sensation intact, Cranial nerves 3- 12 NL Psych/Mental Status: Other (Mildly agitated) All Results(Lab/Rad) Laboratory Tests Test 03/03/21 05:45 White Blood Count 6.3 10^3/uL Red Blood Count 3.99 10^6/uL Hemoglobin 14.1 g/dL Hematocrit 43.7 % Mean Corpuscular Volume 109.5 fL Mean Corpuscular Hemoglobin 35.3 pg Mean Corpuscular Hemoglobin Concent 32.3 g/dL Red Cell Distribution Width 12.2 % Platelet Count 150 10^3/uL Mean Platelet Volume 10.6 fL Neutrophils (%) (Auto) 72.1 % Lymphocytes (%) (Auto) 21.2 % Monocytes (%) (Auto) 5.7 % Neutrophils # (Auto) 4.6 10^3/uL Lymphocytes # (Auto) 1.34 10^3/uL1 Monocytes # (Auto) 0.4 10^3/uL Absolute Immature Granulocyte (auto 0.01 10^3 u/L Absolute Eosinophils (auto) 0.0 10^3/uL Immature Granulocytes % 0.20 % Eosinophils % 0.6 % Basophils % 0.2 % Basophils # 0.0 10^3/uL Sodium Level 139 mmol/L Potassium Level 3.8 mmol/L Chloride Level 101.0 mmol/L Carbon Dioxide Level 28.2 mmol/L Anion Gap 13.6 Blood Urea Nitrogen 11 mg/dL Creatinine 0.83 mg/dL Estimated GFR () 87.7 Est GFR (CKD-EPI)(Non-Afr [place]) 72.5 BUN/Creatinine Ratio 13.0 Glucose Level 100 mg/dL Hemoglobin A1c 5.3 % Calcium Level 8.8 mg/dL Total Bilirubin 1.3 mg/dL Aspartate Amino Transf (AST/SGOT) 137 U/L Alanine Aminotransferase (ALT/SGPT) 154 U/L Alkaline Phosphatase 126 U/L Total Protein 7.3 g/dL Albumin 3.6 g/dL Globulin 3.7 Albumin/Globulin Ratio 0.972 Lipase 2181 U/L Current Medications Medications (Trade) Dose Ordered Sig/Gerardo Route PRN Reason Start Time Stop Time Status Last Admin Dose Admin Lidocaine HCl (Lidocaine Viscous) 1 ml STK-MED ONCE .ROUTE 03/02/21 16:25 03/02/21 16:26 DC Sodium Chloride 1,000 ml @ 250 mls/hr Q4H STAT IV 03/02/21 16:25 03/02/21 20:24 DC 03/02/21 16:40 Promethazine HCl (Phenergan) 25 mg OT STAT IV 03/02/21 16:25 03/02/21 16:31 DC 03/02/21 16:40 Sodium Chloride 1,000 ml @ ud STK-MED ONCE .ROUTE 03/02/21 16:42 03/02/21 16:42 DC Promethazine HCl (Phenergan) 25 mg STK-MED ONCE .ROUTE 03/02/21 16:42 03/02/21 16:42 DC Lorazepam (Ativan) 1 mg STAT STAT IV 03/02/21 17:41 03/02/21 17:43 DC 03/02/21 18:32 Hydromorphone HCl (Dilaudid) 0.5 mg Q4H STAT IV 03/02/21 17:41 03/02/21 17:43 DC 03/02/21 18:34 Hydromorphone HCl (Dilaudid) 2 mg STK-MED ONCE .ROUTE 03/02/21 17:44 03/02/21 17:44 DC Lorazepam (Ativan) 2 mg STK-MED ONCE .ROUTE 03/02/21 17:45 03/02/21 17:45 DC Potassium Chloride/Sodium Chloride 1,000 ml @ 100 mls/hr Q10H IV 03/02/21 20:30 04/01/21 20:29 03/03/21 06:50 Lorazepam (Ativan) 1 mg Q4HR PRN IV ANXIETY 03/02/21 20:30 04/01/21 20:29 03/02/21 21:03 Hydromorphone HCl (Dilaudid) 0.5 mg Q4H PRN IV PAIN 7 - 10 03/02/21 20:30 03/03/21 11:56 DC 03/03/21 02:28 Ondansetron HCl (Zofran) 4 mg Q4H PRN IV NAUSEA / VOMITING 03/02/21 20:30 04/01/21 20:29 Thiamine HCl (Thiamine HCl) 100 mg DAILY PO 03/03/21 09:00 04/02/21 08:59 03/03/21 08:32 Folic Acid (Folic Acid) 1 mg DAILY PO 03/03/21 09:00 04/02/21 08:59 03/03/21 08:32 Hydromorphone HCl (Dilaudid) 2 mg STK-MED ONCE .ROUTE 03/02/21 20:47 03/02/21 20:48 DC Acetaminophen/ Hydrocodone Bitart ([place] 5mg) 1 ea Q6HR PRN PO PAIN 4 - 6 03/03/21 12:00 04/02/21 11:59 Hydromorphone HCl (Dilaudid) 0.5 mg Q6HR PRN IV PAIN 7 - 10 03/03/21 12:00 04/01/21 20:29 03/03/21 14:42 Assessment/Plan Assessment/Plan Assessment/Plan Assessment/Plan 50-year-old heavy drinker who presents with alcoholic pancreatitis and possible early alcohol withdrawal Alcoholic pancreatitis Slowly improving, will advance diet as tolerated Chronic alcohol abuse with possible early withdrawal CIWA scale scheduled Ativan, thiamine, folate counseling done Prophylaxis Enoxaparin, folic acid, thiamine, PPI Full code Will introduce advance diet today. If patient tolerates possible home in a.. NAHOMI VILLARREAL MD Mar 04, 2021 14:51
--- NOTE | 2021-03-04 17:22 | DIET.OP ---
Nutrition Asmt/Malnutrit - Nutritional Screening: Malnutr/Diet Consult Diagnosis: Alcoholic pancreatitis Pertinent Medical Hx/Surgical: COPD, FATTY LIVER, hysterectomy Subjective Information: Pancreatitis dx, improving. Tolerating liquids. Scheduled diet upgrade 03/05 for soft/bland diet. Lytes WNL, receiving replacement KCl. Lipase trending down, liver enzymes high. Nausea improving. Alcohol withdrawals per MD note. Wt hx unknown. Patient /S.O: Cannot Verbalize Diet EDU Pertinent Meds KCl, Zofran, dilaudid, pepcid, thiamin, folic acid Pertinent Labs AST 119 (H), ALT 136 (H) Alk Phos 148 (H), Lipase 546 (H) Height (Inches): 70 Current Weight: 211 %IBW: 140 Weight Status: Obese GI Symptoms: [place] Food Allergies: No Cultural/Ethnic/Gnosticist Leann: None stated Skin Integrity/Comment: No Current %PO: Fair(50-74%) BEE in Kcals: Use Current Weight Calories/Kcals/Kg: MSJ x1.0-1.2 Kcals Calculated: 9611-2391 Protein: Use Current Weight, Adj WT of IBW Protein g/k.0-1.3 g/kg Protein Calculated: 68-88 Fluid: ml: 2317-4392 mL/day (25-30 mL/kg IBW) or per MD Nutritional Problem: Nutr. Problems Present Problems: Inadequate oral intake Etiology: nausea Signs/Symptoms: report of nausea/vomiting d/t pancreatitis Protein-Calorie Malnutrition: N/A Is there a minimum of two crit: No Recommendations by RD: Add supplement feedings RD Comments: Recommend Glucerna 1.5 TID. Expected Outcomes PO intake tolerance. Labs WNL. Wt stabilization. Malnutrtion/Nutrition Risk Edu: No RD Follow-Up Date: Mar 06, 2021 Notificiation Needed?: No ROSITA PLUNKETT LD - TELE Mar 04, 2021 17:22
[2021-03-04 19:01] VITALS: BP 116/89
[2021-03-04 20:00] VITALS: BP 118/87
[2021-03-05] VITALS: BP 120/72
[2021-03-05] MEDS: NS 1000ML/KCL 20MEQ 1,000 ML IV SCH ×2 (03:17→08:30)
[2021-03-05 04:00] VITALS: BP 133/86
[2021-03-05] MEDS: DILAUDID IV PRN ×2 (05:12→11:14)
[2021-03-05 05:23] LABS: BASOPHIL % 0.1 % (0.0-0.2); EOSINOPHIL # 0.1 10^3/uL (0.0-0.2); EOSINOPHIL % 1.5 % (0.0-5.0); LYMPHOCYTES # 1.36 10^3/uL1 (1.0-4.8); LYMPHOCYTES % 16.2 % (24.0-44.0); MONOCYTES # 0.8 10^3/uL (0.3-0.8); NEUTROPHIL # 6.2 10^3/uL (1.8-7.7); NEUTROPHILS % 73.2 % (41.0-85.0); PLATELET COUNT 146 10^3/uL (150-400); RED CELL DISTRIBUTION WIDTH 11.8 % (11.5-14.5)
[2021-03-05 05:47] LABS: CARBON DIOXIDE 21.6 mmol/L (20.0-32)
[2021-03-05 07:03] VITALS: BP 122/91
[2021-03-05] MEDS: THIAMINE HCL PO SCH (08:54)
[2021-03-05] MEDS: PEPCID IV SCH (08:54)
[2021-03-05] MEDS: FOLIC ACID PO SCH (08:54)
[2021-03-05] MEDS ORDERED: PANT40TA6 PO (10:37)
--- NOTE | 2021-03-05 11:00 | NUR ---
DISCHARGE PATIENT BEING DISCHARGED HOME AT THIS TIME IN STABLE CONDITION. PATIENT DECLINES ANY ADDITIONAL NEEDS AT THIS TIME. PATIENT WAS ASSISTED DOWNSTAIRS TO PRIVATE AUTO VIA WHEELCHAIR. RELINQUISHED CARE FOR PATIENT AT THIS TIME.
[2021-03-05 11:16] VITALS: BP 120/84
--- NOTE | 2021-03-05 15:41 | PRM.DC ---
Discharge Summary Date of Discharge: Mar 05, 2021 Time of Request to Discharge: 09:00 Hospital Course 50-year-old female comes in with a complaint of abdominal pain this been present now since 1 AM. Stated it woke her up with a severe epigastric pain. She has had some nausea vomiting throughout the day. The pain at 1:00 she rated at 10/10. It is slowly improved some and is now down to a 6/10. Patient states that she had similar pain about a month ago that lasted for about 12 hours and went away. She stated that that pain also woke her up at night and was not as severe and went away about 12 hours later. She did not seek any medical attention at that time. Patient's cardiac risk factors are a [id number] history of smoking a pack of cigarettes per day. She also has a 3-year history of drinking a pint of whiskey per day. Last drink was 9 PM last night previous history of alcoholic pancreatitis EKG showed a sinus tach At a rate of 106 beats a minute she has Q waves in lead II and III suggestive of an old inferior [place]. There is no acute ST elevation or depression suggestive of any acute injury or ischemia. Diagnostic studies: alcohol level is negative coags are unremarkable H pylori is negative CBC white count is 9.1 H&H are both elevated at 15.5/46.5, lipase 2994.MCV is elevated at 106.9 and MCH is elevated at 35.6. Patient was given a GI cocktail to see if it changed her pain at all and it did not. So I doubt alcoholic gastritis or esophagitis is the cause of her pain. Lipid panel shows cholesterol elevated at 281 HDL elevated elevated at 97 the rest of the lipids are normal. CT scan shows findings of acute pancreatitis and an enlarged fatty liver Patient was admitted to the hospital for further management. Was kept n.p.o., start IV fluids. Pain management. Patient condition slowly improved. Patient did not experience any signs of alcohol withdrawal. Patient is feeling better this morning, tolerating diet. I advised the patient to avoid fatty foods and alcohol. Patient understands. Patient will be discharged home. Condition stable. Activity as tolerated.Diet heart healthy. Patient was encouraged to follow-up with her primary care provider as soon as possible. Exam/Vitals Blood pressure 130/80, heart rate 80, respiratory rate 14, temperature 98. General: Alert, Oriented X3 HEENT: Atraumatic Neck: Supple, No JVD Lungs: Clear to auscultation, Normal air movement Heart: Regular rate, Normal S1, Normal S2 Abdomen: Normal bowel sounds, Soft Extremities: No clubbing, No cyanosis Skin: No breakdown, No significant lesion Neuro: Normal speech, Normal tone Psych/Mental Status: Mental status NL, Mood NL Scheduled Pantoprazole Sodium (Pantoprazole Sodium), 1 TAB PO DAILY Sepsis Evaluation @ Discharge Vital Sign - Last 24 Hours 03/03/21 03/03/21 03/03/21 08:15 11:27 15:25 Temp 98.4 98.3 98.0 Pulse 100 89 97 Resp 19 16 17 B/P (MAP) 136/93 (107) 135/89 (104) 131/91 (104) Pulse Ox 95 95 92 Laboratory Tests Test 03/02/21 16:00 03/03/21 05:45 White Blood Count 9.1 10^3/uL 6.3 10^3/uL Red Blood Count 4.35 10^6/uL 3.99 10^6/uL Hemoglobin 15.5 g/dL 14.1 g/dL Hematocrit 46.5 % 43.7 % Mean Corpuscular Volume 106.9 fL 109.5 fL Mean Corpuscular Hemoglobin 35.6 pg 35.3 pg Mean Corpuscular Hemoglobin Concent 33.3 g/dL 32.3 g/dL Red Cell Distribution Width 12.1 % 12.2 % Platelet Count 210 10^3/uL 150 10^3/uL Mean Platelet Volume 10.7 fL 10.6 fL Neutrophils (%) (Auto) 79.7 % 72.1 % Lymphocytes (%) (Auto) 14.0 % 21.2 % Monocytes (%) (Auto) 6.2 % 5.7 % Neutrophils # (Auto) 7.3 10^3/uL 4.6 10^3/uL Lymphocytes # (Auto) 1.28 10^3/uL1 1.34 10^3/uL1 Monocytes # (Auto) 0.6 10^3/uL 0.4 10^3/uL Absolute Immature Granulocyte (auto 0.01 10^3 u/L 0.01 10^3 u/L Absolute Eosinophils (auto) 0.0 10^3/uL 0.0 10^3/uL Immature Granulocytes % 0.10 % 0.20 % Eosinophils % 0.0 % 0.6 % Basophils % 0.0 % 0.2 % Basophils # 0.0 10^3/uL 0.0 10^3/uL Prothrombin Time 11.0 SEC Prothrombin Time INR (Non-Therap) 1.0 Activated Partial Thromboplast Time 23.7 SEC Sodium Level 139 mmol/L 139 mmol/L Potassium Level 4.4 mmol/L 3.8 mmol/L Chloride Level 99.0 mmol/L 101.0 mmol/L Carbon Dioxide Level 27.5 mmol/L 28.2 mmol/L Anion Gap 16.9 13.6 Blood Urea Nitrogen 12 mg/dL 11 mg/dL Creatinine 0.83 mg/dL 0.83 mg/dL Estimated GFR () 87.7 87.7 Est GFR (CKD-EPI)(Non-Afr Andorran) 72.5 72.5 BUN/Creatinine Ratio 14.0 13.0 Glucose Level 102 mg/dL 100 mg/dL Calcium Level 9.3 mg/dL 8.8 mg/dL Total Bilirubin 1.2 mg/dL 1.3 mg/dL Aspartate Amino Transf (AST/SGOT) 215 U/L 137 U/L Alanine Aminotransferase (ALT/SGPT) 218 U/L 154 U/L Alkaline Phosphatase 142 U/L 126 U/L Total Creatine Kinase 54 U/L Creatine Kinase MB 0.9 ng/mL Troponin I High Sensitivity < 4 ng/L Pro-B-Type Natriuretic Peptide 52 pg/mL Total Protein 8.1 g/dL 7.3 g/dL Albumin 4.3 g/dL 3.6 g/dL Globulin 3.8 3.7 Albumin/Globulin Ratio 1.131 0.972 Triglycerides Level 83 mg/dL Cholesterol Level 281 mg/dL LDL Cholesterol, Calculated 167.4 VLDL Cholesterol, Calculated 16.6 HDL Cholesterol 97 mg/dL Cholesterol Ratio (LDL/HDL) 1.7 Cholesterol/HDL Ratio [id number] Amylase Level 211 U/L Lipase 2994 U/L 2181 U/L Serum Alcohol < 3 mg/dL Helicobacter pylori Screen NEGATIVE SARS-CoV-2 Antigen (Rapid) NEGATIVE Hemoglobin A1c 5.3 % Current Medications Medications (Trade) Dose Ordered Sig/Gerardo PRN Reason Start Time Stop Time Status Last Admin Acetaminophen/ Hydrocodone Bitart (Edmond 5mg) 1 ea Q6HR PRN PAIN 4 - 6 03/03/21 12:00 04/02/21 11:59 Folic Acid (Folic Acid) 1 mg DAILY 03/03/21 09:00 04/02/21 08:59 03/03/21 08:32 Hydromorphone HCl (Dilaudid) 0.5 mg Q6HR PRN PAIN 7 - 10 03/03/21 12:00 04/01/21 20:29 03/03/21 14:42 Lorazepam (Ativan) 1 mg Q4HR PRN ANXIETY 03/02/21 20:30 04/01/21 20:29 03/02/21 21:03 Ondansetron HCl (Zofran) 4 mg Q4H PRN NAUSEA / VOMITING 03/02/21 20:30 04/01/21 20:29 Potassium Chloride/Sodium Chloride 1,000 ml @ 100 mls/hr Q10H 03/02/21 20:30 04/01/21 20:29 03/03/21 06:50 Thiamine HCl (Thiamine HCl) 100 mg DAILY 03/03/21 09:00 04/02/21 08:59 03/03/21 08:32 Plan Problems: (1) Acute alcoholic pancreatitis ICD Code: K85.20 - Alcohol induced acute pancreatitis without necrosis or infection SNOMED: [id number] Discharge Date: Mar 05, 2021 Discharge Disposition: Stable Plan 50-year-old female comes in with a complaint of abdominal pain this been present now since 1 AM. Stated it woke her up with a severe epigastric pain. She has had some nausea vomiting throughout the day. The pain at 1:00 she rated at 10/10. It is slowly improved some and is now down to a 6/10. Patient states that she had similar pain about a month ago that lasted for about 12 hours and went away. She stated that that pain also woke her up at night and was not as severe and went away about 12 hours later. She did not seek any medical attention at that time. Patient's cardiac risk factors are a [id number] history of smoking a pack of cigarettes per day. She also has a 3-year history of drinking a pint of whiskey per day. Last drink was 9 PM last night previous history of alcoholic pancreatitis EKG showed a sinus tach At a rate of 106 beats a minute she has Q waves in lead II and III suggestive of an old inferior [place]. There is no acute ST elevation or depression suggestive of any acute injury or ischemia. Diagnostic studies: alcohol level is negative coags are unremarkable H pylori is negative CBC white count is 9.1 H&H are both elevated at 15.5/46.5, lipase 2994.MCV is elevated at 106.9 and MCH is elevated at 35.6. Patient was given a GI cocktail to see if it changed her pain at all and it did not. So I doubt alcoholic gastritis or esophagitis is the cause of her pain. Lipid panel shows cholesterol elevated at 281 HDL elevated elevated at 97 the rest of the lipids are normal. CT scan shows findings of acute pancreatitis and an enlarged fatty liver Patient was admitted to the hospital for further management. Was kept n.p.o., start IV fluids. Pain management. Patient condition slowly improved. Patient did not experience any signs of alcohol withdrawal. Patient is feeling better this morning, tolerating diet. I advised the patient to avoid fatty foods and alcohol. Patient understands. Patient will be discharged home. Condition stable. Activity as tolerated.Diet heart healthy. Patient was encouraged to follow-up with her primary care provider as soon as possible. NAHOMI VILLARREAL MD Mar 05, 2021 15:41
== END 2021-03-05 11:54 | disposition home or self-care (01) | DRG 440 ==
LOC: ER 15:36 → MS 17:45
PROVIDERS: ADMIT Family Medicine; ATTEND Family Medicine
PROC: 05HB33Z Insertion of Infusion Device into Right Basilic Vein, Percutaneous Approach (ICD-10-PCS; principal; 2021-03-05)
DX: K85.20 Alcohol induced acute pancreatitis without necrosis or infection (principal); F10.10 Alcohol abuse, uncomplicated; F17.210 Nicotine dependence, cigarettes, uncomplicated; J44.9 Chronic obstructive pulmonary disease, unspecified; Z20.822 Contact with and (suspected) exposure to COVID-19; Z88.1 Allergy status to other antibiotic agents; K76.0 Fatty (change of) liver, not elsewhere classified; Z90.710 Acquired absence of both cervix and uterus; Z88.0 Allergy status to penicillin; I25.2 Old myocardial infarction
CPT/HCPCS: 36415; 36569; 74177; 80053; 80061; 82077; 82150; 82550; 82553; 83036; 83690; 83880; 84484; 85025; 85610; 85730; 86677; 87426; 93005; 99285; G0378; J1170; J2060; J2550; J3490; J7030; Q9965

== ENCOUNTER 2023-02-27 13:48 | Emergency (ER) | payer SELFPAY ==
[~2023-02-27] VITALS: Ht 177.8 cm; Wt 54.0 kg
[2023-02-27 13:48] VITALS: BP 159/88; PULSE 110; RESP 18; TEMP 98.5; O2SAT 95
[~2023-02-27 13:48] MED LIST: PANT40TA6 PO
[2023-02-27 14:55] LABS: BILIRUBIN,URINE 3+ (NEGATIVE); LEUKOCYTE ESTERASE ,URINE NEGATIVE (NEGATIVE); PH,URINE 5.5 (4.5-8.0); UROBILINOGEN,URINE >=8.0 E.U./dL (0.2)
[2023-02-27 14:58] LABS: INR 1.4; PROTHROMBIN PROTIME 14.8 SEC (9.7-11.6)
[2023-02-27 14:59] LABS: APPEARANCE,URINE HAZY; UA COLOR AMBER
[2023-02-27 15:00] LABS: NITRATE,URINE POSITIVE (NEGATIVE)
[2023-02-27 15:47] LABS: BASOPHIL % 0.2 % (0.0-0.2); EOSINOPHIL # 0.1 10^3/uL (0.0-0.2); EOSINOPHIL % 0.8 % (0.0-5.0); HEMATOCRIT(ML) 36.7 % (36.0-46.0); HEMOGLOBIN 12.1 g/dL (12.0-15.0); LYMPHOCYTES # 1.47 10^3/uL1 (1.0-4.8); LYMPHOCYTES % 11.5 % (24.0-44.0); MEAN CORP HGB 38.3 pg (26-34); MEAN CORP VOLUME 116.1 fL (78-100); MONOCYTES # 0.7 10^3/uL (0.3-0.8); MONOCYTES % 5.5 % (5.0-12.0); NEUTROPHIL # 10.5 10^3/uL (1.8-7.7); NEUTROPHILS % 81.8 % (41.0-85.0); PLATELET COUNT 225 10^3/uL (150-400); RED BLOOD CELL 3.16 10^6/uL (4.00-5.20); RED CELL DISTRIBUTION WIDTH 15.2 % (11.5-14.5); WHITE BLOOD CELL 12.8 10^3/uL (4.5-11.0)
[2023-02-27 15:53] LABS: +ADD MANUAL DIFF(NO CHRG) NO
[2023-02-27] MEDS ORDERED: ROCEPHIN IV STA (16:27)
[2023-02-27 16:29] LABS: ALBUMIN(ML) 2.1 g/dL (3.4-5.0); ALBUMIN/GLOBULIN RATIO 0.525; ANION GAP 12.5; BUN/CREATININE RATIO 5.19 (10.0-20.0); CALCIUM 8.9 mg/dL (8.4-10.5); CREATINE KINASE MB 0.5 ng/mL (0.5-3.6); CREATININE SERUM 0.77 mg/dL (0.59-1.40); EST GFR, NON-AA 78.4 (>/=60); POTASSIUM 3.5 mmol/L (3.6-5.2)
[2023-02-27] MEDS ORDERED: ROCEPHIN ONE (16:32)
[2023-02-27] MEDS ORDERED: NS 1000ML 1,000 ML IV STA (16:37)
[2023-02-27] MEDS ORDERED: NS 1000ML 1,000 ML ONE (16:42)
[2023-02-27] MEDS ORDERED: TORADOL IV STA (16:43)
[2023-02-27] MEDS ORDERED: TORADOL ONE (16:47)
[2023-02-27 16:50] VITALS: BP 159/88; PULSE 110; RESP 18; TEMP 98.5; O2SAT 86
[2023-02-27 16:54] VITALS: BP 124/69; PULSE 105; RESP 18; TEMP 98.5; O2SAT 91
[2023-02-27 17:56] LABS: ANISOCYTOSIS 1+ (NEGATIVE); POIKILOCYTOSIS 1+ (NEGATIVE); STOMATOCYTES 1+ (NEGATIVE); TARGET CELLS 1+ (NEGATIVE)
[2023-02-27 18:09] VITALS: BP 112/77; PULSE 99; RESP 18; TEMP 98.5; O2SAT 98
== END 2023-02-27 18:36 | disposition short-term general hospital (02) ==
LOC: ER 13:48
DX: A41.9 Sepsis, unspecified organism (principal); N39.0 Urinary tract infection, site not specified; K70.31 Alcoholic cirrhosis of liver with ascites; K82.9 Disease of gallbladder, unspecified; Z88.0 Allergy status to penicillin; Z88.1 Allergy status to other antibiotic agents
CPT/HCPCS: 36569; 96361; 96375; 96374; 99285; 87086; 71045; 74176; 80053; 85025; 36415; 84484; 87040 ×2; 83605; 82553; 85060; 81001; 83880; 82550; 87186; 83690; 85610; 85730; 87077; 93005; J7030; J1885; J0696; 85379